=== PATIENT | male | born 1975 | race Caucasian/White ===

== ENCOUNTER 2020-08-25 17:34 | Emergency (ER) | payer OTHER ==
[~2020-08-25 17:34] MED LIST: DOLOBID 500 MG500 MG PO; LEVOFLOXACIN750 MG PO
== END 2020-08-25 19:26 | disposition left against medical advice (07) ==
LOC: ER1 17:34
DX: R07.9 Chest pain, unspecified (principal); R22.41 Localized swelling, mass and lump, right lower limb; R20.0 Anesthesia of skin; Z53.21 Procedure and treatment not carried out due to patient leaving prior to being seen by health care provider